=== PATIENT | female | born 1930 | race Caucasian/White ===

== ENCOUNTER 2017-10-30 12:55 | Emergency (ER) | payer SELFPAY, BC, MEDICAID, MEDICARE | END 2017-10-30 21:28 | disposition left against medical advice (07) | LOC: E/R 12:55 | DX: Z53.21 Procedure and treatment not carried out due to patient leaving prior to being seen by health care provider (principal) ==

== ENCOUNTER 2017-11-13 11:14 | Inpatient (IN) | payer MEDICARE, BC, MEDICAID ==
[2017-11-13] MEDS ORDERED: ACETAMINOPHEN 325 MG TAB PO (12:30)
[2017-11-13] MEDS ORDERED: ONDANSETRON 4 MG INJ IV ×2 (12:30→18:30)
[2017-11-13 12:31] LABS: ADD MAN DIFF? NO
[2017-11-13 12:34] LABS: BASOPHILS % 0.6 % (0.0-2.0); EOSINOPHILS # 0.1 10^3/ul (0.0-0.5); EOSINOPHILS % 0.7 % (0.0-7.0); HEMATOCRIT 41.8 % (37.0-47.0); LYMPHOCYTES # 1.5 10^3/ul (0.8-2.9); LYMPHOCYTES % 22.3 % (15.0-51.0); MEAN CORPUSCULAR HEMOGLOBIN 32.7 pg (29.0-33.0); MEAN CORPUSCULAR HGB CONC 33.5 g/dl (32.0-37.0); MEAN CORPUSCULAR VOLUME 97.7 fl (82.0-101.0); MEAN PLATELET VOLUME 9.2 fl (7.4-10.4); MONOCYTES % 13.8 % (0.0-11.0); NEUTROPHIL # 4.3 10^3/ul (1.6-7.5); NEUTROPHILS % 62.2 % (39.0-77.0); PLATELET COUNT 380 10^3/UL (140-415); RED BLOOD COUNT 4.28 10^6/ul (4.20-5.40)
[2017-11-13 12:34] LABS: WHITE BLOOD COUNT 6.9 10^3/ul (4.8-10.8)
[2017-11-13 12:50] LABS: LACTIC ACID 1.6 mmol/L (0.5-2.0)
[2017-11-13 12:51] LABS: ANION GAP 15 (8-16); BLOOD UREA NITROGEN 19 mg/dl (7-20); CALCIUM 9.4 mg/dl (8.4-10.2); CARBON DIOXIDE 28 mmol/L (21-31); CHLORIDE 104 mmol/L (97-110); CREATININE 0.78 mg/dl (0.44-1.00); GLUCOSE 100 mg/dl (70-220); POTASSIUM 4.7 mmol/L (3.5-5.1); SODIUM 142 mmol/L (135-144)
[2017-11-13] MEDS: AZTREONAM 1 GM/NS (PMX) 50 ML IVPB (13:57)
[2017-11-13] MEDS: SODIUM CHLORIDE 0.9% 1L BAG IV* (13:57)
[2017-11-13] MEDS: VANCOMYCIN 1 GM (PMX) 250 ML IVPB (15:50)
[2017-11-13] MEDS ORDERED: ACETAMINOPHEN 500 MG TAB PO (18:30)
[2017-11-13] MEDS ORDERED: ALBUTEROL 0.083% (NEB) 2.5 MG/3 ML AMP HHN (18:30)
[2017-11-13] MEDS: PIPER-TAZO 2.25 GM (PMX) 50 ML IVPB ×2 (20:00→20:26)
[2017-11-13] MEDS: DEXTROSE 5%-0.225% NACL 1,000 ML IV (20:12)
[2017-11-13] MEDS: APIXABAN 5 MG TABLET PO (20:14)
[2017-11-13] MEDS: ATORVASTATIN 20 MG TAB PO (20:14)
[2017-11-13] MEDS: AZITHROMYCIN 500MG/NS (PMX) 250 ML IVPB (20:26)
[2017-11-13] MEDS ORDERED: PENDING SANTYL ORDER FOR WOUND CARE XX (20:30)
[2017-11-13 22:12] LABS: LACTIC ACID 1.4 mmol/L (0.5-2.0)
[2017-11-14] MEDS: LEVOTHYROXINE 100 MCG TAB PO (05:45)
[2017-11-14] MEDS: PIPER-TAZO 2.25 GM (PMX) 50 ML IVPB ×3 (05:45→22:35)
[2017-11-14 07:27] LABS: ADD MAN DIFF? NO
[2017-11-14 07:38] LABS: BASOPHILS % 0.5 % (0.0-2.0); EOSINOPHILS # 0.2 10^3/ul (0.0-0.5); EOSINOPHILS % 2.5 % (0.0-7.0); HEMATOCRIT 35.4 % (37.0-47.0); HEMOGLOBIN 11.8 g/dl (12.0-16.0); LYMPHOCYTES # 1.5 10^3/ul (0.8-2.9); LYMPHOCYTES % 22.8 % (15.0-51.0); MEAN CORPUSCULAR HEMOGLOBIN 32.6 pg (29.0-33.0); MEAN CORPUSCULAR HGB CONC 33.3 g/dl (32.0-37.0); MEAN CORPUSCULAR VOLUME 97.8 fl (82.0-101.0); MEAN PLATELET VOLUME 9.3 fl (7.4-10.4); MONOCYTE # 0.9 10^3/ul (0.3-0.9); MONOCYTES % 14.6 % (0.0-11.0); NEUTROPHIL # 3.8 10^3/ul (1.6-7.5); NEUTROPHILS % 59.4 % (39.0-77.0); PLATELET COUNT 319 10^3/UL (140-415); RED BLOOD COUNT 3.62 10^6/ul (4.20-5.40); RED CELL DISTRIBUTION WIDTH 12.9 % (11.5-14.5)
[2017-11-14 07:38] LABS: WHITE BLOOD COUNT 6.4 10^3/ul (4.8-10.8)
[2017-11-14 08:14] LABS: ANION GAP 11 (8-16); BLOOD UREA NITROGEN 12 mg/dl (7-20); CALCIUM 8.1 mg/dl (8.4-10.2); CARBON DIOXIDE 25 mmol/L (21-31); CHLORIDE 110 mmol/L (97-110); CHOL/HDL RATIO 2.8 RATIO; CHOLESTEROL 106 mg/dl (100-200); CREATININE 0.63 mg/dl (0.44-1.00); GLUCOSE 88 mg/dl (70-220); HDL CHOLESTEROL 37 mg/dl (33-92); LDL CHOLESTEROL,CALCULATED 58 mg/dl; POTASSIUM 4.1 mmol/L (3.5-5.1); SODIUM 142 mmol/L (135-144); TRIGLYCERIDES 55 mg/dl (0-149)
[2017-11-14] MEDS: ASPIRIN 81 MG TAB PO (09:27)
[2017-11-14] MEDS: DOCUSATE SODIUM 100 MG CAP PO (09:27)
[2017-11-14] MEDS: AMIODARONE 200 MG TAB PO (09:29)
[2017-11-14] MEDS: APIXABAN 5 MG TABLET PO ×2 (09:29→21:04)
[2017-11-14] MEDS: CALCIUM/VITAMIN D (500/200) TAB PO (09:29)
[2017-11-14] MEDS: BALSAM PERU/CASTOR OIL 60 GM TUBE TOP ×2 (11:30→21:05)
[2017-11-14] MEDS: DEXTROSE 5%-0.225% NACL 1,000 ML IV ×2 (14:15→19:52)
[2017-11-14 16:31] LABS: THYROID STIMULATING HORMONE 0.362 MIU/L (0.465-4.680)
[2017-11-14] MEDS: ATORVASTATIN 20 MG TAB PO (21:04)
[2017-11-14] MEDS: AZITHROMYCIN 500MG/NS (PMX) 250 ML IVPB (21:04)
[2017-11-15] MEDS: LEVOTHYROXINE 100 MCG TAB PO (06:04)
[2017-11-15] MEDS: PIPER-TAZO 2.25 GM (PMX) 50 ML IVPB ×3 (06:05→22:30)
[2017-11-15] MEDS: ASPIRIN 81 MG TAB PO (08:51)
[2017-11-15] MEDS: DOCUSATE SODIUM 100 MG CAP PO (08:51)
[2017-11-15] MEDS: CALCIUM/VITAMIN D (500/200) TAB PO (08:52)
[2017-11-15] MEDS: APIXABAN 5 MG TABLET PO ×2 (08:52→20:33)
[2017-11-15] MEDS: AMIODARONE 200 MG TAB PO (08:52)
[2017-11-15] MEDS: BALSAM PERU/CASTOR OIL 60 GM TUBE TOP ×2 (08:53→22:20)
[2017-11-15] MEDS: DEXTROSE 5%-0.225% NACL 1,000 ML IV ×2 (10:30→18:24)
[2017-11-15] MEDS: ALBUTEROL 0.083% (NEB) 2.5 MG/3 ML AMP HHN ×2 (16:52→20:02)
[2017-11-15] MEDS: AZITHROMYCIN 500MG/NS (PMX) 250 ML IVPB (20:33)
[2017-11-15] MEDS: ATORVASTATIN 20 MG TAB PO (20:33)
[2017-11-16] MEDS: LEVOTHYROXINE 100 MCG TAB PO (05:41)
[2017-11-16] MEDS: PIPER-TAZO 2.25 GM (PMX) 50 ML IVPB ×3 (05:41→21:06)
[2017-11-16] MEDS: DEXTROSE 5%-0.225% NACL 1,000 ML IV ×2 (06:30→17:25)
[2017-11-16] MEDS: ALBUTEROL 0.083% (NEB) 2.5 MG/3 ML AMP HHN ×4 (08:00→20:06)
[2017-11-16] MEDS: DOCUSATE SODIUM 100 MG CAP PO ×2 (09:00→09:59)
[2017-11-16] MEDS: ASPIRIN 81 MG TAB PO (09:59)
[2017-11-16] MEDS: BALSAM PERU/CASTOR OIL 60 GM TUBE TOP ×2 (10:00→21:49)
[2017-11-16] MEDS: APIXABAN 5 MG TABLET PO ×2 (10:00→21:07)
[2017-11-16] MEDS: CALCIUM/VITAMIN D (500/200) TAB PO (10:00)
[2017-11-16] MEDS: AMIODARONE 200 MG TAB PO (10:00)
[2017-11-16] MEDS: ATORVASTATIN 20 MG TAB PO (21:08)
[2017-11-16] MEDS: GUAIFENESIN/DM (SR) TAB PO (21:08)
[2017-11-17] MEDS: DEXTROSE 5%-0.225% NACL 1,000 ML IV ×2 (04:57→16:23)
[2017-11-17] MEDS: LEVOTHYROXINE 100 MCG TAB PO (05:42)
[2017-11-17] MEDS: PIPER-TAZO 2.25 GM (PMX) 50 ML IVPB ×3 (05:42→21:37)
[2017-11-17] MEDS: ALBUTEROL 0.083% (NEB) 2.5 MG/3 ML AMP HHN ×4 (08:00→19:19)
[2017-11-17] MEDS: ASPIRIN 81 MG TAB PO (08:58)
[2017-11-17] MEDS: APIXABAN 5 MG TABLET PO ×2 (08:58→21:34)
[2017-11-17] MEDS: GUAIFENESIN/DM (SR) TAB PO ×2 (08:58→21:00)
[2017-11-17] MEDS: CALCIUM/VITAMIN D (500/200) TAB PO (08:59)
[2017-11-17] MEDS: AMIODARONE 200 MG TAB PO (08:59)
[2017-11-17] MEDS: BALSAM PERU/CASTOR OIL 60 GM TUBE TOP ×2 (08:59→21:36)
[2017-11-17] MEDS: DOCUSATE SODIUM 100 MG CAP PO (09:00)
[2017-11-17] MEDS: ATORVASTATIN 20 MG TAB PO (21:34)
[2017-11-17] MEDS: LACTOBACILLUS RHAMNOSUS CAP PO (21:42)
[2017-11-18] MEDS: PIPER-TAZO 2.25 GM (PMX) 50 ML IVPB ×3 (06:24→21:32)
[2017-11-18] MEDS: LEVOTHYROXINE 75 MCG TAB PO (06:24)
[2017-11-18 06:48] LABS: ADD MAN DIFF? NO
[2017-11-18 06:54] LABS: BASOPHILS % 0.6 % (0.0-2.0); EOSINOPHILS # 0.3 10^3/ul (0.0-0.5); EOSINOPHILS % 4.7 % (0.0-7.0); HEMATOCRIT 32.8 % (37.0-47.0); HEMOGLOBIN 10.9 g/dl (12.0-16.0); LYMPHOCYTES # 1.1 10^3/ul (0.8-2.9); LYMPHOCYTES % 20.7 % (15.0-51.0); MEAN CORPUSCULAR HEMOGLOBIN 32.5 pg (29.0-33.0); MEAN CORPUSCULAR HGB CONC 33.2 g/dl (32.0-37.0); MEAN CORPUSCULAR VOLUME 97.9 fl (82.0-101.0); MEAN PLATELET VOLUME 9.6 fl (7.4-10.4); MONOCYTE # 0.8 10^3/ul (0.3-0.9); MONOCYTES % 15.5 % (0.0-11.0); NEUTROPHIL # 3.1 10^3/ul (1.6-7.5); NEUTROPHILS % 58.3 % (39.0-77.0); PLATELET COUNT 266 10^3/UL (140-415); RED BLOOD COUNT 3.35 10^6/ul (4.20-5.40); RED CELL DISTRIBUTION WIDTH 13.1 % (11.5-14.5)
[2017-11-18 06:54] LABS: WHITE BLOOD COUNT 5.4 10^3/ul (4.8-10.8)
[2017-11-18 07:26] LABS: ANION GAP 8 (8-16); BLOOD UREA NITROGEN 10 mg/dl (7-20); CALCIUM 8.2 mg/dl (8.4-10.2); CARBON DIOXIDE 31 mmol/L (21-31); CHLORIDE 109 mmol/L (97-110); CREATININE 0.63 mg/dl (0.44-1.00); GLUCOSE 87 mg/dl (70-220); POTASSIUM 4.2 mmol/L (3.5-5.1); SODIUM 144 mmol/L (135-144)
[2017-11-18] MEDS: APIXABAN 5 MG TABLET PO ×2 (08:09→21:00)
[2017-11-18] MEDS: ASPIRIN 81 MG TAB PO (08:09)
[2017-11-18] MEDS: BALSAM PERU/CASTOR OIL 60 GM TUBE TOP ×2 (08:09→21:01)
[2017-11-18] MEDS: CALCIUM/VITAMIN D (500/200) TAB PO (08:09)
[2017-11-18] MEDS: GUAIFENESIN/DM (SR) TAB PO ×2 (08:09→21:00)
[2017-11-18] MEDS: AMIODARONE 200 MG TAB PO (08:09)
[2017-11-18] MEDS: DOCUSATE SODIUM 100 MG CAP PO (08:10)
[2017-11-18] MEDS: ALBUTEROL 0.083% (NEB) 2.5 MG/3 ML AMP HHN ×4 (08:17→20:41)
[2017-11-18] MEDS: LACTOBACILLUS RHAMNOSUS CAP PO ×2 (09:00→21:00)
[2017-11-18] MEDS: DEXTROSE 5%-0.225% NACL 1,000 ML IV (14:00)
[2017-11-18 17:35] LABS: OCCULT BLOOD STOOL NEGATIVE (NEGATIVE)
[2017-11-18] MEDS: VANCOMYCIN HCL 250 MG/5ML POSYG PO (21:00)
[2017-11-18] MEDS: ATORVASTATIN 20 MG TAB PO (21:00)
[2017-11-19] MEDS: VANCOMYCIN HCL 250 MG/5ML POSYG PO ×4 (00:52→17:39)
[2017-11-19] MEDS: LEVOTHYROXINE 75 MCG TAB PO (05:36)
[2017-11-19] MEDS: PIPER-TAZO 2.25 GM (PMX) 50 ML IVPB ×3 (05:38→20:33)
[2017-11-19 06:13] LABS: ADD MAN DIFF? NO
[2017-11-19 06:21] LABS: WHITE BLOOD COUNT 4.6 10^3/ul (4.8-10.8)
[2017-11-19 06:21] LABS: BASOPHILS % 0.6 % (0.0-2.0); EOSINOPHILS # 0.2 10^3/ul (0.0-0.5); EOSINOPHILS % 4.8 % (0.0-7.0); HEMATOCRIT 33.6 % (37.0-47.0); HEMOGLOBIN 11.1 g/dl (12.0-16.0); LYMPHOCYTES # 1.2 10^3/ul (0.8-2.9); LYMPHOCYTES % 26.1 % (15.0-51.0); MEAN CORPUSCULAR HEMOGLOBIN 32.6 pg (29.0-33.0); MEAN CORPUSCULAR VOLUME 98.8 fl (82.0-101.0); MEAN PLATELET VOLUME 9.6 fl (7.4-10.4); MONOCYTE # 0.7 10^3/ul (0.3-0.9); NEUTROPHIL # 2.4 10^3/ul (1.6-7.5); NEUTROPHILS % 52.3 % (39.0-77.0); PLATELET COUNT 248 10^3/UL (140-415); RED CELL DISTRIBUTION WIDTH 13.2 % (11.5-14.5)
[2017-11-19 06:44] LABS: ANION GAP 9 (8-16); BLOOD UREA NITROGEN 7 mg/dl (7-20); CALCIUM 8.5 mg/dl (8.4-10.2); CARBON DIOXIDE 28 mmol/L (21-31); CHLORIDE 107 mmol/L (97-110); CREATININE 0.59 mg/dl (0.44-1.00); GLUCOSE 88 mg/dl (70-220); SODIUM 140 mmol/L (135-144)
[2017-11-19] MEDS: ALBUTEROL 0.083% (NEB) 2.5 MG/3 ML AMP HHN ×4 (08:07→20:34)
[2017-11-19] MEDS: APIXABAN 5 MG TABLET PO ×2 (08:55→20:30)
[2017-11-19] MEDS: GUAIFENESIN/DM (SR) TAB PO ×2 (08:55→20:32)
[2017-11-19] MEDS: LACTOBACILLUS RHAMNOSUS CAP PO ×2 (08:55→20:30)
[2017-11-19] MEDS: DOCUSATE SODIUM 100 MG CAP PO (08:55)
[2017-11-19] MEDS: ASPIRIN 81 MG TAB PO (08:55)
[2017-11-19] MEDS: CALCIUM/VITAMIN D (500/200) TAB PO (08:56)
[2017-11-19] MEDS: AMIODARONE 200 MG TAB PO (08:56)
[2017-11-19] MEDS: BALSAM PERU/CASTOR OIL 60 GM TUBE TOP ×2 (09:00→20:32)
[2017-11-19] MEDS: DEXTROSE 5%-0.225% NACL 1,000 ML IV (14:20)
[2017-11-19] MEDS: HYDROCORTISONE 1% 28.35 GM OINT TOP ×2 (18:24→20:32)
[2017-11-19] MEDS: ATORVASTATIN 20 MG TAB PO (20:30)
[2017-11-20 05:30] LABS: ADD MAN DIFF? NO
[2017-11-20 05:37] LABS: BASOPHIL # 0.1 10^3/ul (0.0-0.1); EOSINOPHILS # 0.3 10^3/ul (0.0-0.5); EOSINOPHILS % 4.9 % (0.0-7.0); HEMATOCRIT 33.7 % (37.0-47.0); HEMOGLOBIN 11.1 g/dl (12.0-16.0); LYMPHOCYTES # 1.1 10^3/ul (0.8-2.9); LYMPHOCYTES % 21.6 % (15.0-51.0); MEAN CORPUSCULAR HEMOGLOBIN 32.5 pg (29.0-33.0); MEAN CORPUSCULAR HGB CONC 32.9 g/dl (32.0-37.0); MEAN CORPUSCULAR VOLUME 98.5 fl (82.0-101.0); MEAN PLATELET VOLUME 9.4 fl (7.4-10.4); MONOCYTE # 0.8 10^3/ul (0.3-0.9); MONOCYTES % 15.8 % (0.0-11.0); NEUTROPHIL # 2.9 10^3/ul (1.6-7.5); NEUTROPHILS % 56.5 % (39.0-77.0); PLATELET COUNT 263 10^3/UL (140-415); RED BLOOD COUNT 3.42 10^6/ul (4.20-5.40); RED CELL DISTRIBUTION WIDTH 12.9 % (11.5-14.5)
[2017-11-20 05:37] LABS: WHITE BLOOD COUNT 5.1 10^3/ul (4.8-10.8)
[2017-11-20] MEDS: LEVOTHYROXINE 75 MCG TAB PO (05:39)
[2017-11-20] MEDS: PIPER-TAZO 2.25 GM (PMX) 50 ML IVPB ×3 (05:39→22:03)
[2017-11-20] MEDS: VANCOMYCIN HCL 250 MG/5ML POSYG PO ×5 (05:40→23:44)
[2017-11-20 06:01] LABS: ANION GAP 10 (8-16); BLOOD UREA NITROGEN 9 mg/dl (7-20); CALCIUM 8.6 mg/dl (8.4-10.2); CARBON DIOXIDE 30 mmol/L (21-31); CHLORIDE 108 mmol/L (97-110); CREATININE 0.69 mg/dl (0.44-1.00); GLUCOSE 83 mg/dl (70-220); MAGNESIUM 2.1 mg/dl (1.7-2.5); POTASSIUM 4.3 mmol/L (3.5-5.1); SODIUM 144 mmol/L (135-144)
[2017-11-20] MEDS: ALBUTEROL 0.083% (NEB) 2.5 MG/3 ML AMP HHN ×4 (08:02→22:06)
[2017-11-20] MEDS: DOCUSATE SODIUM 100 MG CAP PO (09:00)
[2017-11-20] MEDS: CALCIUM/VITAMIN D (500/200) TAB PO (09:55)
[2017-11-20] MEDS: ASPIRIN 81 MG TAB PO (09:55)
[2017-11-20] MEDS: GUAIFENESIN/DM (SR) TAB PO ×2 (09:55→20:42)
[2017-11-20] MEDS: APIXABAN 5 MG TABLET PO ×2 (09:55→20:42)
[2017-11-20] MEDS: AMIODARONE 200 MG TAB PO (09:56)
[2017-11-20] MEDS: LACTOBACILLUS RHAMNOSUS CAP PO ×2 (09:59→20:42)
[2017-11-20] MEDS: BALSAM PERU/CASTOR OIL 60 GM TUBE TOP ×2 (09:59→20:43)
[2017-11-20] MEDS: HYDROCORTISONE 1% 28.35 GM OINT TOP ×3 (09:59→20:44)
[2017-11-20] MEDS: DEXTROSE 5%-0.225% NACL 1,000 ML IV (11:32)
[2017-11-20] MEDS: ATORVASTATIN 20 MG TAB PO (20:42)
[2017-11-21] MEDS: LEVOTHYROXINE 75 MCG TAB PO (05:54)
[2017-11-21] MEDS: PIPER-TAZO 2.25 GM (PMX) 50 ML IVPB ×2 (05:54→14:05)
[2017-11-21] MEDS: VANCOMYCIN HCL 250 MG/5ML POSYG PO ×2 (05:55→12:30)
[2017-11-21] MEDS: DEXTROSE 5%-0.225% NACL 1,000 ML IV (05:55)
[2017-11-21] MEDS: ALBUTEROL 0.083% (NEB) 2.5 MG/3 ML AMP HHN ×4 (08:00→20:00)
[2017-11-21] MEDS: DOCUSATE SODIUM 100 MG CAP PO (09:00)
[2017-11-21] MEDS: LACTOBACILLUS RHAMNOSUS CAP PO ×2 (09:04→21:07)
[2017-11-21] MEDS: ASPIRIN 81 MG TAB PO (09:04)
[2017-11-21] MEDS: APIXABAN 5 MG TABLET PO ×2 (09:04→21:09)
[2017-11-21] MEDS: GUAIFENESIN/DM (SR) TAB PO ×2 (09:04→21:07)
[2017-11-21] MEDS: AMIODARONE 200 MG TAB PO (09:05)
[2017-11-21] MEDS: CALCIUM/VITAMIN D (500/200) TAB PO (09:05)
[2017-11-21] MEDS: HYDROCORTISONE 1% 28.35 GM OINT TOP ×3 (09:06→21:07)
[2017-11-21] MEDS: BALSAM PERU/CASTOR OIL 60 GM TUBE TOP ×3 (09:07→21:08)
[2017-11-21] MEDS ORDERED: LOPERAMIDE 2 MG CAP PO (17:30)
[2017-11-21] MEDS: ATORVASTATIN 20 MG TAB PO (21:07)
[2017-11-22] MEDS: DEXTROSE 5%-0.225% NACL 1,000 ML IV ×4 (02:30→23:53)
[2017-11-22] MEDS: LEVOTHYROXINE 75 MCG TAB PO (06:20)
[2017-11-22] MEDS: ALBUTEROL 0.083% (NEB) 2.5 MG/3 ML AMP HHN ×4 (07:30→19:40)
[2017-11-22] MEDS: DOCUSATE SODIUM 100 MG CAP PO ×2 (09:00→09:12)
[2017-11-22] MEDS: AMIODARONE 200 MG TAB PO (09:00)
[2017-11-22] MEDS: ASPIRIN 81 MG TAB PO (09:12)
[2017-11-22] MEDS: HYDROCORTISONE 1% 28.35 GM OINT TOP ×3 (09:12→20:45)
[2017-11-22] MEDS: APIXABAN 5 MG TABLET PO ×2 (09:12→20:45)
[2017-11-22] MEDS: CALCIUM/VITAMIN D (500/200) TAB PO (09:12)
[2017-11-22] MEDS: GUAIFENESIN/DM (SR) TAB PO ×2 (09:12→20:45)
[2017-11-22] MEDS: BALSAM PERU/CASTOR OIL 60 GM TUBE TOP ×2 (09:13→20:45)
[2017-11-22] MEDS: LACTOBACILLUS RHAMNOSUS CAP PO ×2 (09:23→20:45)
[2017-11-22] MEDS: ATORVASTATIN 20 MG TAB PO (20:45)
[2017-11-23] MEDS: LEVOTHYROXINE 75 MCG TAB PO (06:06)
[2017-11-23] MEDS: ALBUTEROL 0.083% (NEB) 2.5 MG/3 ML AMP HHN ×4 (07:53→20:00)
[2017-11-23] MEDS: GUAIFENESIN/DM (SR) TAB PO ×2 (09:17→20:36)
[2017-11-23] MEDS: ASPIRIN 81 MG TAB PO (09:17)
[2017-11-23] MEDS: LACTOBACILLUS RHAMNOSUS CAP PO ×2 (09:17→20:36)
[2017-11-23] MEDS: APIXABAN 5 MG TABLET PO ×2 (09:17→20:36)
[2017-11-23] MEDS: CALCIUM/VITAMIN D (500/200) TAB PO (09:17)
[2017-11-23] MEDS: DOCUSATE SODIUM 100 MG CAP PO (09:17)
[2017-11-23] MEDS: AMIODARONE 200 MG TAB PO (09:18)
[2017-11-23] MEDS: BALSAM PERU/CASTOR OIL 60 GM TUBE TOP ×2 (09:19→20:42)
[2017-11-23] MEDS: HYDROCORTISONE 1% 28.35 GM OINT TOP ×3 (09:19→20:42)
[2017-11-23] MEDS: DEXTROSE 5%-0.225% NACL 1,000 ML IV ×2 (18:30→20:40)
[2017-11-23] MEDS: DOXYCYCLINE 100 MG TAB PO (20:36)
[2017-11-23] MEDS: ATORVASTATIN 20 MG TAB PO (20:36)
[2017-11-24] MEDS: LEVOTHYROXINE 75 MCG TAB PO (05:34)
[2017-11-24 06:42] LABS: ADD MAN DIFF? NO
[2017-11-24 06:46] LABS: WHITE BLOOD COUNT 3.8 10^3/ul (4.8-10.8)
[2017-11-24 06:46] LABS: EOSINOPHILS # 0.2 10^3/ul (0.0-0.5); EOSINOPHILS % 5.8 % (0.0-7.0); HEMATOCRIT 33.7 % (37.0-47.0); HEMOGLOBIN 11.2 g/dl (12.0-16.0); LYMPHOCYTES # 1.2 10^3/ul (0.8-2.9); LYMPHOCYTES % 32.2 % (15.0-51.0); MEAN CORPUSCULAR HEMOGLOBIN 32.1 pg (29.0-33.0); MEAN CORPUSCULAR HGB CONC 33.2 g/dl (32.0-37.0); MEAN CORPUSCULAR VOLUME 96.6 fl (82.0-101.0); MEAN PLATELET VOLUME 9.7 fl (7.4-10.4); MONOCYTE # 0.6 10^3/ul (0.3-0.9); MONOCYTES % 16.5 % (0.0-11.0); NEUTROPHIL # 1.7 10^3/ul (1.6-7.5); NEUTROPHILS % 44.5 % (39.0-77.0); PLATELET COUNT 256 10^3/UL (140-415); RED BLOOD COUNT 3.49 10^6/ul (4.20-5.40); RED CELL DISTRIBUTION WIDTH 12.8 % (11.5-14.5)
[2017-11-24 07:10] LABS: ANION GAP 11 (8-16); BLOOD UREA NITROGEN 7 mg/dl (7-20); CALCIUM 8.7 mg/dl (8.4-10.2); CARBON DIOXIDE 26 mmol/L (21-31); CHLORIDE 109 mmol/L (97-110); CREATININE 0.63 mg/dl (0.44-1.00); GLUCOSE 83 mg/dl (70-220); POTASSIUM 4.1 mmol/L (3.5-5.1); SODIUM 142 mmol/L (135-144)
[2017-11-24] MEDS: ALBUTEROL 0.083% (NEB) 2.5 MG/3 ML AMP HHN ×2 (08:25→12:04)
[2017-11-24] MEDS: CALCIUM/VITAMIN D (500/200) TAB PO (09:04)
[2017-11-24] MEDS: DOXYCYCLINE 100 MG TAB PO (09:05)
[2017-11-24] MEDS: ASPIRIN 81 MG TAB PO (09:05)
[2017-11-24] MEDS: GUAIFENESIN/DM (SR) TAB PO (09:05)
[2017-11-24] MEDS: DOCUSATE SODIUM 100 MG CAP PO (09:05)
[2017-11-24] MEDS: LACTOBACILLUS RHAMNOSUS CAP PO (09:05)
[2017-11-24] MEDS: AMIODARONE 200 MG TAB PO (09:05)
[2017-11-24] MEDS: APIXABAN 5 MG TABLET PO (09:05)
[2017-11-24] MEDS: BALSAM PERU/CASTOR OIL 60 GM TUBE TOP (09:06)
[2017-11-24] MEDS: HYDROCORTISONE 1% 28.35 GM OINT TOP ×2 (09:06→13:49)
[2017-11-27 15:57] LABS: CRYPTOCOCCAL ANTIGEN - SOURCE Serum
== END 2017-11-24 17:05 | disposition home or self-care (01) | DRG 194 ==
LOC: MS2 11-24 10:08 → E/R 11:14 → MS2 17:19
DX: J18.9 Pneumonia, unspecified organism (principal); I69.951 Hemiplegia and hemiparesis following unspecified cerebrovascular disease affecting right dominant side; A04.72 Enterocolitis due to Clostridium difficile, not specified as recurrent; I48.91 Unspecified atrial fibrillation; Y95 Nosocomial condition; R15.9 Full incontinence of feces; E03.9 Hypothyroidism, unspecified; R19.7 Diarrhea, unspecified; D64.9 Anemia, unspecified; Z79.01 Long term (current) use of anticoagulants; Z88.8 Allergy status to other drugs, medicaments and biological substances; Z88.1 Allergy status to other antibiotic agents
CPT/HCPCS: 36415; 71045; 71046; 71250; 80048; 80061; 82270; 83605; 83735; 84439; 84443; 85025; 86635; 86641; 87040; 87075; 94640; 94664; 96365; 96366; 96375; 97110; 97116; 97162; 97530; 99285-25

== ENCOUNTER → 2018-02-07 | Outpatient (CLI) | payer MEDICARE, BC, MEDICAID | END | disposition home or self-care (01) | LOC: C/S 13:52 | DX: G43.109 Migraine with aura, not intractable, without status migrainosus (principal); I63.9 Cerebral infarction, unspecified | CPT/HCPCS: 70450 ==

== ENCOUNTER → 2018-02-25 | Outpatient (CLI) | payer MEDICARE, BC, MEDICAID ==
[~2018-02-25] MED LIST: IOHEXOL 300MG/ML 150 ML BTL; SOD CHLORIDE 0.9% 100 ML
== END | disposition home or self-care (01) ==
LOC: C/S 14:51
DX: R91.8 Other nonspecific abnormal finding of lung field (principal)
CPT/HCPCS: 71260